=== PATIENT | female | born 1950 | race Caucasian/White ===

== ENCOUNTER → 2016-07-03 | Outpatient (CLI) | payer MEDICARE ==
[~2016-07-03] MED LIST: AMBIEN 5MG TAB5 MG PO; BONIVA150 MG PO; DILANTIN 100MG100 MG PO; DILANTIN 50MG.50 MG PO; OMEPRAZOLE40 MG PO; PHENERGAN 25MG.25 M1 PO; PHENYTOIN 100M100 MG PO; PRILOSEC10 MG PO; SERTRALINE 50MG50 MG PO; TEMAZEPAM7.5 MG PO; VICODIN 7.5/501 EACH PO
[2016-07-03 10:22] LABS: HEMOGLOBIN 13.6 g/dL (12.2-16.2); LYMPH # 2.4 K/mm3 (0.7-4.5); LYMPH % 28.9 % (10-50.0)
[2016-07-03 10:52] LABS: URINE BLOOD NEGATIVE (NEG)
[2016-07-03 11:03] LABS: URINE BILIRUBIN - DIPSTICK 1+ (NEG)
[2016-07-03 11:04] LABS: BUN 10 mg/dL (7-18)
[2016-07-03 11:11] LABS: AMPHETAMINES/METAMPHETAMINES NEGATIVE ng/mL (<1000)
[2016-07-03 11:32] LABS: GFR (ESTIMATED) 123 ML/MIN (59-)
== END ==
LOC: COP 09:50
PROVIDERS: Family Medicine
DX: E87.6 Hypokalemia (principal); J44.9 Chronic obstructive pulmonary disease, unspecified; E46 Unspecified protein-calorie malnutrition; R62.7 Adult failure to thrive; R56.9 Unspecified convulsions; E21.3 Hyperparathyroidism, unspecified; Z45.2 Encounter for adjustment and management of vascular access device; R82.90 Unspecified abnormal findings in urine
CPT/HCPCS: J1642

== ENCOUNTER 2016-10-29 09:50 | Outpatient (CLI) | payer MEDICARE ==
[2016-10-29 10:20] LABS: HEMOGLOBIN 13.6 g/dL (12.2-16.2); LYMPH # 2.1 K/mm3 (0.7-4.5); LYMPH % 23.9 % (10-50.0)
[2016-10-29 10:31] LABS: BUN 12 mg/dL (7-18); GFR (ESTIMATED) 159 ML/MIN (59-)
== END 2016-10-29 10:20 | disposition home or self-care (01) ==
LOC: COP 09:50
PROVIDERS: Family Medicine
DX: J44.9 Chronic obstructive pulmonary disease, unspecified (principal); G40.909 Epilepsy, unspecified, not intractable, without status epilepticus; Z51.81 Encounter for therapeutic drug level monitoring; Z45.2 Encounter for adjustment and management of vascular access device
CPT/HCPCS: J1642

== ENCOUNTER 2016-12-03 09:40 | Outpatient (CLI) | payer MEDICARE | END 2016-12-03 09:55 | disposition home or self-care (01) | LOC: COP 09:40 | DX: Z45.2 Encounter for adjustment and management of vascular access device (principal) | CPT/HCPCS: J1642 ==

== ENCOUNTER 2016-12-31 09:55 | Outpatient (CLI) | payer MEDICARE | END 2016-12-31 10:20 | disposition home or self-care (01) | LOC: COP 09:55 | DX: Z45.2 Encounter for adjustment and management of vascular access device (principal) | CPT/HCPCS: J1642 ==